=== PATIENT | male | born 1960 | race Caucasian/White ===

== ENCOUNTER 2019-01-18 18:16 | Emergency (ER) | payer BC, OTHER ==
[2019-01-18] MEDS ORDERED: DIPHTH,PERTUSS(ACELL),TET 0.5 ML DISP.SYRIN IM ONE ×2 (18:46→20:10)
--- NOTE | 2019-01-18 18:49 | PDOC ---
Rapid Medical Evaluation Time Seen by Provider: 01/18/19 18:45 Medical Evaluation: 01/18/19 18:48 I have performed a brief in-person evaluation of this patient. The patient presents with a chief complaint of: R finger laceration with piece of glass. tetanus unknown. Pertinent physical exam findings: R third finger volar proximal phalanx with laceration, FROM 5/5 strength of finger. NO bleeding I have ordered the following: R finger xray, tetanus The patient will proceed to the ED for further evaluation. 01/18/19 18:49
[2019-01-18 18:51] VITALS: BP 121/86; PULSE 89; TEMP 98.2; BMI 29.5
--- NOTE | 2019-01-18 19:49 | PDOC ---
History of Present Illness - General Chief Complaint: Laceration Stated Complaint: HAND CUT Time Seen by Provider: 01/18/19 18:45 History Source: Patient Exam Limitations: Clinical Condition - History of Present Illness Initial Comments: 01/18/19 19:42 Patient with no significant past medical history presented with complaint of laceration to palmar aspect of right middle finger status post cleaning the living room table and a piece of punching into the skin of right middle finger lacerating palmar aspect of right middle finger. Patient does not recall last tetanus vaccine. Denies weakness in the finger, restricted or decreased finger movement. Denies numbness or tingling sensation. Denies any other symptoms. Patient reports he removed piece of the glass from his finger prior to ED arrival. Timing/Duration: reports: just prior to arrival Past History - Past Medical History Allergies/Adverse Reactions: Allergies Allergy/AdvReac Type Severity Reaction Status Date / Time No Known Allergies Allergy Verified 01/18/19 18:46 Home Medications: Ambulatory Orders Ibuprofen 800 mg PO Q8H PRN #20 tablet 01/18/19 Levothyroxine Sodium [Euthyrox] 75 mcg PO DAILY 01/18/19 Rosuvastatin Calcium [Crestor] 20 mg PO DAILY 01/18/19 Sulfamethoxazole/Trimethoprim [Bactrim Ds Tablet] 1 each PO BID 7 Days #14 tablet 01/18/19 Tobramycin Sulf/Dexamethasone [Tobradex Ophthalmic Suspension -] 1 drop OU ASDIR 01/18/19 - Psycho Social/Smoking Cessation Hx Smoking History: Unknown if ever smoked Review of Systems - Review of Systems Able to Perform ROS?: Yes Is the patient limited Slovenian proficient: No Constitutional: No: Malaise, Weakness HEENTM: No: Symptoms Reported Respiratory: No: Symptoms reported Cardiac (ROS): No: Symptoms Reported ABD/GI: No: Symptoms Reported Musculoskeletal: Yes: Symptoms Reported, See HPI, Muscle Pain (right middle finger) Integumentary: Yes: Symptoms Reported, See HPI, Other (deep laceration to plantar aspect of right middle finger) Neurological: No: Numbness, Paresthesia, Tingling, Weakness All Other Systems: Reviewed and Negative *Physical Exam - Vital Signs Last Vital Signs Temp Pulse Resp BP Pulse Ox 98.2 F 89 22 H 121/86 99 01/18/19 18:48 01/18/19 18:48 01/18/19 18:48 01/18/19 18:48 01/18/19 18:48 - Physical Exam Comments: 01/18/19 19:47 GENERAL: Well developed, well nourished. Awake and alert in mild acute distress. MUSCULOSKELETAL : mild tenderness over proximal plantar aspect of right middle finger with a laceration area. 2 cm deep laceration with contused muscle to proximal phalange of right middle finger. Full range of motion of right middle finger and hand. 5 out of 5 muscle strength to right middle finger. Normal sensory sensation to right middle finger and hand.. No bony deformities SKIN: Warm and dry. Normal capillary refill. 2 cm deep laceration with contused muscle to the plantar aspect of proximal right middle finger over volar aspect of MCP with minimal bleeding. NEUROLOGICAL: Alert, awake, appropriate. No motor deficits in the lower extremities. Gait is normal without ataxia. PSYCHIATRIC: Cooperative. Good eye contact. Appropriate mood and affect. General Appearance: Yes: Nourished Procedures - Laceration/Wound Repair Right Anterior Volar Finger 3rd digit Wound Length: to 2.5 cm (2cm) Wound Explored: clean, no foreign body present Wound's Depth, Shape: into muscle, linear, contused tissue Irrigated w/ Saline: Yes Betadine Prep: Yes Anesthesia: 1% Lidocaine Amount of Anesthetic (ccs): 2 Wound Repaired With: Sutures Suture Size/Type: 4:0, proline (3 sutures) Number of Sutures: 3 Layer Closure: No Sterile Dressing Applied: Yes Splint Applied: No Sling Applied: No Progress: 01/20/19 11:54 Wound clean with Betadine and irrigated with normal saline. Wound anesthetized with 2 cc 1% lidocaine. Good anesthesia achieved. Wound closed with 4-0 Prolene sutures. Patient tolerated procedure well. Tetanus vaccine given Medical Decision Making - Medical Decision Making 01/18/19 19:43 Patient with no significant past medical history presented with complaint of laceration to palmar aspect of right middle finger status post cleaning the living room table and a piece of punching into the skin of right middle finger lacerating palmar aspect of right middle finger. Patient does not recall last tetanus vaccine. Denies weakness in the finger, restricted or decreased finger movement. Denies numbness or tingling sensation. Denies any other symptoms. Patient reports he removed piece of the glass from his finger prior to ED arrival. Exam significant for 2 cm deep laceration to proximal phalange on plantar aspect of right middle finger with exposed subcutaneous tissue with minimal bleeding. Full range of motion of right middle finger and hand. 5 out of 5 muscle strength to right middle finger. Normal sensory sensation to right middle finger. X-ray of right hand middle finger shows no foreign object and hand of finger over MCP of right middle finger. Radiology reads possible bone fragment or foreign at PIP which is at a different location of injury which is likely an incidental finding. findings discussed with patient and Pt will f/u with hand orthopedics for findings. Wound clean with Betadine and irrigated with normal saline. Wound anesthetized with 2 cc 1% lidocaine. Good anesthesia achieved. Wound closed with 4-0 Prolene sutures. Patient tolerated procedure well. Tetanus vaccine given. Patient educated on home wound care with dressing change twice a day and apply bacitracin to wound. Rx for Bactrim double strength twice daily for a week for infection prophylaxis. Rx Motrin for pain.. Patient advised to follow-up with a specialist in the next 2 to 3 days for reassessment. Patient stable for discharge Discharge - Discharge Information Problems reviewed: Yes Clinical Impression/Diagnosis: Laceration of right middle finger w/o foreign body w/o damage to nail Qualifiers: Encounter type: initial encounter Qualified Code(s): S61.212A - Laceration without foreign body of right middle finger without damage to nail, initial encounter Condition: Stable Disposition: HOME - Admission No - Additional Discharge Information Prescriptions: Ibuprofen 800 mg PO Q8H PRN #20 tablet PRN Reason: pain Sulfamethoxazole/Trimethoprim [Bactrim Ds Tablet] 1 each PO BID 7 Days #14 tablet - Follow up/Referral Referrals: Jaime Montana MD [Staff Physician] - - Patient Discharge Instructions Patient Printed Discharge Instructions: DI for Laceration Repair Additional Instructions: Keep wound clean and dry for the next 24 hours.Take prescribed medications as prescribed. Follow-up with referred hand specialist in 2-3 days for reassessment - Post Discharge Activity
== END 2019-01-18 20:30 | disposition home or self-care (01) ==
LOC: JER 18:16 → JERFT 18:16
PROC: 3E0234Z Introduction of Serum, Toxoid and Vaccine into Muscle, Percutaneous Approach (ICD-10-PCS; principal; 2019-01-18)
PROC: 0JQJ0ZZ Repair Right Hand Subcutaneous Tissue and Fascia, Open Approach (ICD-10-PCS; 2019-01-18)
DX: S61.212A Laceration without foreign body of right middle finger without damage to nail, initial encounter (principal); W25.XXXA Contact with sharp glass, initial encounter; Y93.E9 Activity, other interior property and clothing maintenance; Y92.018 Other place in single-family (private) house as the place of occurrence of the external cause; Y99.8 Other external cause status
CPT/HCPCS: 73140-TC-RT-FY; 90715; 99282-25